=== PATIENT | female | born 1975 | race African-American/Black ===

== ENCOUNTER 2016-03-23 21:38 | Emergency (ER) | payer OTHER ==
[2016-03-23 22:01] VITALS: BP 140/94; PULSE 94; TEMP 98.4; BMI 35.7
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
== END 2016-03-24 00:25 | disposition home or self-care (01) ==
LOC: FER 21:38
PROC: 2W3DX1Z Immobilization of Left Lower Arm using Splint (ICD-10-PCS; principal; 2016-03-23)
DX: S62.002A Unspecified fracture of navicular [scaphoid] bone of left wrist, initial encounter for closed fracture (principal); W51.XXXA Accidental striking against or bumped into by another person, initial encounter; Y93.F9 Activity, other caregiving; Y92.218 Other school as the place of occurrence of the external cause; Y99.0 Civilian activity done for income or pay
CPT/HCPCS: 73130-TC-LT; 84703; 99282-25